=== PATIENT | male | born 1980 | race Caucasian/White ===

== ENCOUNTER 2019-02-10 16:52 | Emergency (ER) | payer SELFPAY ==
[2019-02-10] MEDS ORDERED: Lidocaine 1% 10 ML MDV INJECT ONE (17:21)
[2019-02-10] MEDS ORDERED: Diphtheria,Pertussis(Acell),Tetanus Vaccine 0.5 ML Syringe IM ONE (17:21)
--- NOTE | 2019-02-10 17:40 | EDM.PDOC ---
ED HPI GENERAL MEDICAL PROBLEM - General Chief Complaint: Laceration Stated Complaint: RIGHT THUMB LAC Time Seen by Provider: 02/10/19 17:06 Source of Information: Reports: Patient, RN Notes Reviewed History Limitations: Reports: No Limitations - History of Present Illness INITIAL COMMENTS - FREE TEXT/NARRATIVE: Patient is a 38-year-old male who presents to the ED for the evaluation of a right thumb laceration. The patient states that he was using his pocket knife and the safety latch failed, and the knife blade came back and cut him on the right thumb. This is at the very tip of his thumb, and cut through his nail vertically. He went to the ambulance bay in [place], they cleansed it and wrapped it and told him he should come here for evaluation. Patient thinks that his last tetanus booster was around 9 years ago. The wound is not actively bleeding at this time. He denies any numbness or tingling in the area. He is able to move his thumb in all range of motion without much pain. Right Finger-Thumb Pain Score (Numeric/FACES): 6 - Related Data Allergies Allergy/AdvReac Type Severity Reaction Status Date / Time Penicillins Allergy Hives Verified 02/10/19 17:08 Home Meds: Home Meds Acetaminophen/HYDROcodone [[place]ield 325-5 MG] 1 tab PO Q6H PRN #8 tablet 02/10/19 [ Rx] Past Medical History Musculoskeletal History: Reports: Gout Other Musculoskeletal History: pt feels he may currently have gout to the 2nd toe to the left foot. family history. Social & Family History - Tobacco Use Smoking Status *Q: Never Smoker - Caffeine Use Caffeine Use: Reports: Soda - Recreational Drug Use Recreational Drug Use: No ED ROS GENERAL - Review of Systems Review Of Systems: ROS reveals no pertinent complaints other than HPI. Skin: Reports: Wound (2cm linear, vertical wound to R thumb tip, this involves the nail ) Neurological: Denies: Numbness, Tingling Psychiatric: Reports: No Symptoms Hematologic/Lymphatic: Reports: No Symptoms Immunologic: Reports: No Symptoms ED EXAM, SKIN/RASH Exam: See Below Exam Limited By: No Limitations General Appearance: Alert, WD/WN, No Apparent Distress Respiratory/Chest: No Respiratory Distress, Lungs Clear, Normal Breath Sounds, No Accessory Muscle Use, Chest Non-Tender Cardiovascular: Normal Peripheral Pulses, Regular Rate, Rhythm, No Murmur Peripheral Pulses: 3+: Radial (L), Radial (R) Extremities: Normal Inspection (with exception of R thumb), Normal Capillary Refill Neurological: Alert, Oriented, Normal Cognition, No Motor/Sensory Deficits Psychiatric: Normal Affect, Normal Mood Skin: Warm, Dry, Normal Color, No Rash, Wound/Incision (2 cm linear laceration to the right thumb tip, this does involve the right thumbnail, it does not disrupt the cuticle. This is vertical in nature.) ED SKIN PROCEDURES - Laceration/Wound Repair Right Distal Digit - 1st (Thumb) Appearance: Superficial, Linear, Clean Distal NVT: Neuro & Vascular Intact, No Tendon Injury Anesthetic Type: Local Local Anesthesia - Lidocaine (Xylocaine): 1% Plain Local Anesthetic Volume: 3cc Skin Prep: Chlorhexidine (Hibiciens), Saline Saline Irrigation (cc's): 250 Exploration/Debridement/Repair: Wound Explored, In a Bloodless Field, Explored to Base, No Foreign Material Found Closed with: Sutures, Dermabond (to the nail itself to close the wound) Lac/Wound length In cm: 2 Suture Size: 4-0 # of Sutures: 6 Suture Type: Prolene, Interrupted, Simple Sterile Dressing Applied: Nurse Tetanus Status Addressed: Yes Complications: No Course - Vital Signs Last Recorded V/S: Last Vital Signs Temp 97.2 F 02/10/19 17:11 Pulse 86 02/10/19 17:11 Resp 20 02/10/19 17:11 BP 132/68 02/10/19 17:11 Pulse Ox 94 L 02/10/19 17:11 - Orders/Labs/Meds Orders: Active Orders 24 hr Category Date Time Status Vaccines to be Administered [RC] PER UNIT ROUTINE Care 02/10/19 17:21 Active Meds: Medications Discontinued Medications Generic Name Dose Route Start Last Admin Trade Name Freq PRN Reason Stop Dose Admin Diphtheria/Tetanus/Acell Pertussis 0.5 ml 02/10/19 17:21 02/10/19 17:40 Adacel IM 02/10/19 17:22 0.5 ml .ONCE ONE Administration Lidocaine HCl 10 ml 02/10/19 17:21 02/10/19 17:41 Xylocaine 1% INJECT 02/10/19 17:22 10 ml ONETIME ONE Administration Departure - Departure Time of Disposition: 17:42 Disposition: Home, Self-Care 01 Condition: Fair Clinical Impression: Laceration of thumb with damage to nail Qualifiers: Encounter type: initial encounter Foreign body presence: without foreign body Laterality: right Qualified Code(s): S61.111A - Laceration without foreign body of right thumb with damage to nail, initial encounter - Discharge Information *PRESCRIPTION DRUG MONITORING PROGRAM REVIEWED*: No *COPY OF PRESCRIPTION DRUG MONITORING REPORT IN PATIENT RALF: No Prescriptions: Acetaminophen/HYDROcodone [[place] 325-5 MG] 1 tab PO Q6H PRN #8 tablet PRN Reason: Pain Instructions: Nail Bed Injury, [id number], Sutured Wound Care, [id number] Referrals: PCP,None [Primary Care Provider] - Forms: ED Department Discharge Additional Instructions: You have been evaluated in the ED for your laceration. Sutures will need to stay in for 14 days. (02/24/19) You may return to the ED or clinic for removal. You may take Tylenol (acetaminophen) or Advil (ibuprofen) every 6 hours as needed for further pain relief. You were provided with a prescription for hydrocodone/acetaminophen 5/325, for pain not relieved by Tylenol or ibuprofen alone. Do not take more than 4000 mg of Tylenol or 3200 mg ibuprofen in a 24 hour time span. Please keep this area clean and dry, you may cleanse with regular soap and water. No vigorous scrubbing. Please return to ED if your symptoms change or worsen. - My Orders Last 24 Hours: My Active Orders 02/10/19 17:21 Vaccines to be Administered [RC] PER UNIT ROUTINE - Assessment/Plan Last 24 Hours: My Active Orders 02/10/19 17:21 Vaccines to be Administered [RC] PER UNIT ROUTINE
== END 2019-02-10 18:35 | disposition home or self-care (01) ==
LOC: JD.ED 16:52
DX: S61.111A Laceration without foreign body of right thumb with damage to nail, initial encounter (principal); Z88.0 Allergy status to penicillin; Z23 Encounter for immunization; W26.0XXA Contact with knife, initial encounter
CPT/HCPCS: 12001; 90471; 90700; 99282; J2001